=== PATIENT | female | born 2000 | race Caucasian/White ===

== ENCOUNTER 2022-07-27 15:46 | Outpatient (CLI) | payer BC ==
[2022-07-27 17:00] LABS: BHCG - Serum Negative (NEGATIVE); Pregs Control Background? CLEAR/WHITE (CLR/WHITE); Pregs Control Bar Appear? YES (CONTROL BAR)
== END 2022-07-27 15:47 | disposition home or self-care (01) ==
LOC: LABBT 15:46
PROVIDERS: ATTEND Otolaryngology Plastic Surgery within the Head & Neck
DX: Z01.812 Encounter for preprocedural laboratory examination (principal); J35.1 Hypertrophy of tonsils; J35.2 Hypertrophy of adenoids
CPT/HCPCS: 84703; 85014

== ENCOUNTER 2022-08-01 09:50 | Day surgery (SDC) | payer BC ==
[2022-07-31 13:04] VITALS: BMI 29.2
[2022-08-01] MEDS ORDERED: Midazolam HCl 2 mg/2 ml Vial ONE (10:22)
[2022-08-01] MEDS ORDERED: fentaNYL PF 100 MCG/2 ML SYRINGE ONE (10:23)
[2022-08-01] MEDS ORDERED: Scopolamine 1.5 mg/72 hour Patch ONE (10:25)
[2022-08-01] MEDS ORDERED: PROPOFOL 200 MG/20 ML VIAL ONE ×2 (10:36)
[2022-08-01] MEDS ORDERED: Ondansetron PF 4 MG/2 ML Vial ONE (10:36)
[2022-08-01] MEDS ORDERED: Dexamethasone 20 MG/5 ML VIAL ONE (10:36)
[2022-08-01] MEDS ORDERED: methylPREDNISolone Acetate 40 mg/ml Vial ONE (10:40)
[2022-08-01] MEDS ORDERED: FENTANYL 50 MCG/ML 1 ML VIAL ONE (11:26)
[2022-08-01] MEDS ORDERED: Hydrocodone-Acetamin 15 ML UDCUP ONE (11:59)
== END 2022-08-01 13:19 | disposition home or self-care (01) ==
LOC: SDC 09:50
PROVIDERS: ATTEND Otolaryngology Plastic Surgery within the Head & Neck
PROC: 0CTPXZZ Resection of Tonsils, External Approach (ICD-10-PCS; principal; 2022-08-01)
PROC: 0CTQXZZ Resection of Adenoids, External Approach (ICD-10-PCS; principal; 2022-08-01)
DX: J35.03 Chronic tonsillitis and adenoiditis (principal); Z87.820 Personal history of traumatic brain injury; Z79.899 Other long term (current) drug therapy
CPT/HCPCS: 88304; J1030; J1100; J2250; J2405; J2704; J3010